=== PATIENT | female | born 1990 | race Caucasian/White ===

== ENCOUNTER 2016-12-20 11:07 | Inpatient (IN) | payer BC ==
[~2016-12-20] VITALS: Ht 152.4 cm; Wt 96.4 kg
[~2016-12-20 11:07] MED LIST: DICY20TA59 PO; HYDR-762 PO
[2016-12-20 11:23] VITALS: Ht 152.4 cm; Wt 96.4 kg
[2016-12-20 11:24] VITALS: BP 123/65; PULSE 82
[2016-12-20] MEDS ORDERED: PRENAT PO (11:25)
[2016-12-20] MEDS ORDERED: OXYTOCIN 30 UNITS/LR 500 ML IV PRN (12:00)
[2016-12-20] MEDS ORDERED: LACTATED RINGER'S 1,000 ML IV PRN (12:00)
[2016-12-20] MEDS ORDERED: LIDOCAINE 1% (MPF) 30 ML INJ INJ PRN (12:00)
[2016-12-20] MEDS ORDERED: OXYTOCIN 30 UNITS/LR 500 ML IV SCH ×3 (12:00)
[2016-12-20] MEDS ORDERED: BUTORPHANOL 2 MG INJ IV PRN ×2 (12:00)
[2016-12-20] MEDS ORDERED: METHYLERGONOVINE 0.2 MG INJ IM PRN (12:00)
[2016-12-20] MEDS ORDERED: CARBOPROST 250 MCG INJ IM PRN (12:00)
[2016-12-20] MEDS ORDERED: MISOPROSTOL 200 MCG TAB PR PRN (12:00)
[2016-12-20] MEDS: LACTATED RINGER'S 1,000 ML IV SCH ×2 (12:49→18:08)
[2016-12-20 12:51] LABS: BASOPHILS % 0.3 % (0.0-2.0); EOSINOPHILS % 0.3 % (0.0-7.0); HEMATOCRIT 39.6 % (37.0-47.0); HEMOGLOBIN 12.8 g/dl (12.0-16.0); LYMPHOCYTES # 1.8 10^3/ul (0.8-2.9); LYMPHOCYTES % 15.4 % (15.0-51.0); MEAN CORPUSCULAR HEMOGLOBIN 29.7 pg (29.0-33.0); MEAN CORPUSCULAR HGB CONC 32.3 g/dl (32.0-37.0); MEAN CORPUSCULAR VOLUME 91.9 fl (82.0-101.0); MEAN PLATELET VOLUME 11.7 fl (7.4-10.4); MONOCYTE # 0.6 10^3/ul (0.3-0.9); MONOCYTES % 4.8 % (0.0-11.0); NEUTROPHILS % 78.7 % (39.0-77.0); PLATELET COUNT 240 10^3/UL (140-415); RED BLOOD COUNT 4.31 10^6/ul (4.20-5.40); RED CELL DISTRIBUTION WIDTH 13.3 % (11.5-14.5); WHITE BLOOD COUNT 11.6 10^3/ul (4.8-10.8)
[2016-12-20 12:57] LABS: INR 0.9; PROTIME 12.1 Sec (12.2-14.2); PT RATIO 0.9
[2016-12-20 12:58] LABS: PARTIAL THROMBOPLASTIN TIME 28.9 Sec (25.0-35.0)
[2016-12-20] MEDS ORDERED: DINOPROSTONE 10 MG VAG SUPP VAG ONE (14:30)
[2016-12-21] MEDS: LACTATED RINGER'S 1,000 ML IV SCH ×3 (01:49→19:03)
[2016-12-21] MEDS ORDERED: FENTAnyl 2MCG/ML-ROPIV 0.2% 100 ML ONE (03:40)
[2016-12-21] MEDS ORDERED: ONDANSETRON 4 MG INJ IV PRN (05:00)
[2016-12-21] MEDS ORDERED: TRIMETHOBENZAMIDE 100 MG/ML VIAL IM PRN (05:00)
[2016-12-21] MEDS ORDERED: NALOXONE (0.4 MG/ML) INJ IV PRN (05:00)
[2016-12-21] MEDS ORDERED: DIPHENHYDRAMINE 50 MG INJ IV PRN (05:00)
[2016-12-21] MEDS ORDERED: NALBUPHINE HCL (10 MG/1 ML) INJ IV PRN (05:00)
[2016-12-21] MEDS ORDERED: DINOPROSTONE 10 MG VAG SUPP VAG ONE (05:00)
[2016-12-21] MEDS: FENTAnyl 2MCG/ML-ROPIV 0.2% 100 ML BAG EPI SCH ×2 (10:52→18:14)
[2016-12-22] MEDS: FENTAnyl 2MCG/ML-ROPIV 0.2% 100 ML BAG EPI SCH ×3 (00:46→13:43)
[2016-12-22] MEDS: LACTATED RINGER'S 1,000 ML IV SCH ×3 (02:29→13:56)
[2016-12-22] MEDS ORDERED: DEXTROSE 5%-LR 1,000 ML IV PRN (12:00)
[2016-12-22] MEDS ORDERED: MINERAL OIL LIGHT 10 ML VIAL ONE (13:51)
[2016-12-22] MEDS ORDERED: AMPICILLIN 2 GM/NS (PMX) 100 ML ONE (14:58)
[2016-12-22] MEDS ORDERED: AMPICILLIN 2 GM/NS (PMX) 100 ML IVPB ONE (15:00)
[2016-12-22] MEDS ORDERED: ACETAMINOPHEN 325 MG TAB PO PRN (16:20)
[2016-12-22] MEDS ORDERED: AMPICILLIN 1 GM/NS (PMX) 50 ML IVPB SCH (17:00)
--- NOTE | 2016-12-22 17:08 | HP ---
Date/Time of Note Date/Time of Note DATE: 12/22/16 TIME: 16:59 OB - History Hx of Present Free Text/Dictation 26 y.o at 39w2d here for induction initial exam ftp/long -2 EFM u,cq5-10min mild had unevenful course membrane intact GBS neg Chief Complaint: for induction Estimated Due Date: Dec 25, 2016 : 1 Para: 0 Spontaneous : 0 Therapeutic : 0 Care: Good Care Ultrasounds: Normal mid trimester US Obstetrical Complications: None Medical Complications: None Past Family/Social History * Past Medical, Surgical, Family and Obstetric Histories reviewed from chart. Blood Type: O+ Rubella: immune RPR/VDRL: Negative GBS Status: Negative HBsAG: Negative OB Admission Exam Vital Signs Vital Signs Vital Signs Date Time Temp Pulse Resp B/P Pulse Ox O2 Delivery O2 Flow Rate FiO2 12/20/16 11:24 97.9 82 123/65 Physical Exam HEENT: WNL Heart: Rhythm Normal Lungs: Clear, Equal Abdomen: WNL Extremities: Normal Reflexes: Normal Cervical Dilatation: Fingertip Effacement: 0% Station: Ballotable Membranes: Intact Amniotic Fluid: Unevaluable Heart Rate: 150's Accelerations: Accelerations Present Decelerations: No Decelerations Varibility: Moderate Contractions on Admission: 6-10 Minutes Apart Intensity: Mild Last 72 hours Lab Results CBC & BMP 12/20/16 12:20 OB Assessment/Plan Reason for admission: induction of labor Other Assessment: IUP 39w2d Plan: Induction Induction Method: per Misoprostol Protocol LIZANDRO URBINA MD Dec 22, 2016 17:08
--- NOTE | 2016-12-22 17:38 | LDN ---
Date/Time of Note Date/Time of Note DATE: 12/22/16 TIME: 17:35 Delivery Summary normal vaginal delivery Weeks of Gestation 39w4d Placenta Delivered: Spontaneously Meconium: none Episiotomy: No Perineal laceration: 2 Laceration repair: 000ch gut with SH needle Anesthesia type: Epidural Estimated blood loss: 200 Sponge & Needle done & correct: Yes All needle counts correct: Yes Any foreign bodies felt in the: No Problems: Infant Delivery Information Sex Infant Sex: female Apgars 1 Minute: 9 5 Minute: 9 Suctioning Nose & mouth suctioned at tad: Yes Delee suction performed: No Umbilical Cord Umbilical cord with: 3 Vessels Cord presentations: nuchal cord Nuchal cord present X: 1 Cord Blood was obtained: Yes Mother & Baby Disposition Disposition Mom & Baby to Maternity; Good: Yes Mom transferred to: Other () Baby to NICU: No LIZANDRO URBINA MD Dec 22, 2016 17:38
[2016-12-22 18:05] VITALS: BP 141/73; PULSE 53; RESP 20
[2016-12-22] MEDS: IBUPROFEN 600 MG TAB PO SCH ×2 (18:56→23:58)
[2016-12-22] MEDS ORDERED: OXYTOCIN 30 UNITS/LR 500 ML IV PRN (19:00)
[2016-12-22] MEDS ORDERED: METHYLERGONOVINE 0.2 MG INJ IM PRN (19:00)
[2016-12-22] MEDS ORDERED: BENZOCAINE 20% 56 ML SPRAY TOP PRN (19:00)
[2016-12-22] MEDS ORDERED: CARBOPROST 250 MCG INJ IM PRN (19:00)
[2016-12-22] MEDS ORDERED: ZOLPIDEM 5 MG TAB PO PRN (19:00)
[2016-12-22] MEDS ORDERED: OXYCODONE/ASPIRIN (4.88/325) TAB PO PRN ×2 (19:00)
[2016-12-22] MEDS ORDERED: LANOLIN 7 GM TUBE TOP PRN (19:00)
[2016-12-22] MEDS ORDERED: WITCH HAZEL/GLYCERIN PAD PR PRN (19:00)
[2016-12-22] MEDS ORDERED: MISOPROSTOL 200 MCG TAB PR PRN (19:00)
[2016-12-22 20:05] VITALS: BP 103/50; PULSE 65; RESP 19
[2016-12-22] MEDS ORDERED: LACTATED RINGER'S 1,000 ML IV SCH (21:30)
[2016-12-22] MEDS: CEFAZOLIN 2 GM/50 ML (PMX) 50 ML IVPB SCH (22:15)
[2016-12-22] MEDS: SENNA/DOCUSATE NA (8.6MG/50MG) TAB PO SCH (22:15)
[2016-12-22 23:50] VITALS: BP 99/54; PULSE 57; RESP 19
[2016-12-23 04:10] VITALS: BP 93/55; PULSE 57; RESP 18
[2016-12-23] MEDS: IBUPROFEN 600 MG TAB PO SCH ×4 (05:31→23:42)
[2016-12-23] MEDS: CEFAZOLIN 2 GM/50 ML (PMX) 50 ML IVPB SCH ×2 (05:31→14:49)
[2016-12-23 07:45] VITALS: BP 98/55; PULSE 54; RESP 18
[2016-12-23 09:24] LABS: BASOPHIL # 0.1 10^3/ul (0.0-0.1); BASOPHILS % 0.3 % (0.0-2.0); EOSINOPHILS # 0.1 10^3/ul (0.0-0.5); EOSINOPHILS % 0.6 % (0.0-7.0); HEMATOCRIT 35.9 % (37.0-47.0); HEMOGLOBIN 11.5 g/dl (12.0-16.0); LYMPHOCYTES # 2.1 10^3/ul (0.8-2.9); LYMPHOCYTES % 8.8 % (15.0-51.0); MEAN CORPUSCULAR HEMOGLOBIN 29.1 pg (29.0-33.0); MEAN CORPUSCULAR VOLUME 90.9 fl (82.0-101.0); MEAN PLATELET VOLUME 12.1 fl (7.4-10.4); MONOCYTE # 1.4 10^3/ul (0.3-0.9); MONOCYTES % 5.7 % (0.0-11.0); NEUTROPHILS % 83.8 % (39.0-77.0); PLATELET COUNT 198 10^3/UL (140-415); RED BLOOD COUNT 3.95 10^6/ul (4.20-5.40); RED CELL DISTRIBUTION WIDTH 13.5 % (11.5-14.5); WHITE BLOOD COUNT 23.9 10^3/ul (4.8-10.8)
[2016-12-23] MEDS: SENNA/DOCUSATE NA (8.6MG/50MG) TAB PO SCH ×2 (09:48→21:54)
[2016-12-23 16:00] VITALS: BP 101/57; PULSE 59; RESP 18
--- NOTE | 2016-12-23 16:21 | PN ---
Date/Time of Note Date/Time of Note DATE: 12/23/16 TIME: 16:17 OB Subjective Subjective Subjective no c/o OB Objective Objective Objective vss afebrile fundus firm non tender lochia min calf neg for tenderness OB Assessment/Plan Other Assessment: stable # 1 normal vaginal delivery Other plan: as ordered LIZANDRO URBINA MD Dec 23, 2016 16:21
[2016-12-23 16:36] LABS: BASOPHIL # 0.1 10^3/ul (0.0-0.1); BASOPHILS % 0.3 % (0.0-2.0); EOSINOPHILS # 0.2 10^3/ul (0.0-0.5); EOSINOPHILS % 0.6 % (0.0-7.0); HEMATOCRIT 36.2 % (37.0-47.0); HEMOGLOBIN 11.6 g/dl (12.0-16.0); LYMPHOCYTES # 2.6 10^3/ul (0.8-2.9); MEAN CORPUSCULAR HEMOGLOBIN 29.4 pg (29.0-33.0); MEAN CORPUSCULAR VOLUME 91.9 fl (82.0-101.0); MONOCYTES % 4.2 % (0.0-11.0); NEUTROPHIL # 19.6 10^3/ul (1.6-7.5); NEUTROPHILS % 83.2 % (39.0-77.0); PLATELET COUNT 203 10^3/UL (140-415); RED BLOOD COUNT 3.94 10^6/ul (4.20-5.40); RED CELL DISTRIBUTION WIDTH 13.5 % (11.5-14.5); WHITE BLOOD COUNT 23.5 10^3/ul (4.8-10.8)
[2016-12-23] MEDS: CEPHALEXIN 500 MG CAP PO SCH ×2 (18:46→23:42)
[2016-12-23 20:30] VITALS: BP 102/57; PULSE 57; RESP 18
[2016-12-24 04:00] VITALS: BP 97/54; PULSE 62; RESP 18
[2016-12-24] MEDS: IBUPROFEN 600 MG TAB PO SCH ×2 (05:32→11:34)
[2016-12-24] MEDS: CEPHALEXIN 500 MG CAP PO SCH ×2 (05:32→11:34)
[2016-12-24 08:12] VITALS: BP 111/59; PULSE 64; RESP 18
[2016-12-24] MEDS: SENNA/DOCUSATE NA (8.6MG/50MG) TAB PO SCH (08:52)
[2016-12-24] MEDS ORDERED: DIPHTH/TET/ACEL PERTUSS (ADULT) 0.5 ML VIAL IM* ONE (09:00)
[2016-12-24 09:03] LABS: BASOPHIL # 0.1 10^3/ul (0.0-0.1); BASOPHILS % 0.3 % (0.0-2.0); EOSINOPHILS # 0.2 10^3/ul (0.0-0.5); EOSINOPHILS % 1.1 % (0.0-7.0); HEMATOCRIT 36.8 % (37.0-47.0); HEMOGLOBIN 11.7 g/dl (12.0-16.0); LYMPHOCYTES # 2.2 10^3/ul (0.8-2.9); MEAN CORPUSCULAR HEMOGLOBIN 29.3 pg (29.0-33.0); MEAN CORPUSCULAR HGB CONC 31.8 g/dl (32.0-37.0); MEAN CORPUSCULAR VOLUME 92.2 fl (82.0-101.0); MEAN PLATELET VOLUME 12.3 fl (7.4-10.4); MONOCYTE # 0.8 10^3/ul (0.3-0.9); MONOCYTES % 4.9 % (0.0-11.0); NEUTROPHIL # 12.5 10^3/ul (1.6-7.5); NEUTROPHILS % 78.9 % (39.0-77.0); PLATELET COUNT 215 10^3/UL (140-415); RED BLOOD COUNT 3.99 10^6/ul (4.20-5.40); RED CELL DISTRIBUTION WIDTH 13.6 % (11.5-14.5); WHITE BLOOD COUNT 15.8 10^3/ul (4.8-10.8)
--- NOTE | 2016-12-24 13:22 | PD.PPDC ---
[employer] Discharge Instruction Diagnosis Final Diagnosis: s/p normal vaginal delivery Condition Patient Condition: Stable Diet Diet: Resume Regular Diet Activity/Restrictions Activity: May Shower Restrictions: No Lifting No Sexual Activity Nothing in the Vagina No [place] No Tampons, douche Follow-up Follow-up with Physician: Week/Weeks Return to clinic for PHARMACY SPECIALIST Instructions: Fever greater than 101 Chills Worsening abdominal pain Excessive Vaginal Bleeding More than 2 pads per hour Unable to tolerate diet OB Instructions: Breast Tenderness Depression Blurried Vision Headache LIZANDRO URBINA MD Dec 24, 2016 13:22
--- NOTE | 2016-12-24 13:26 | DS ---
Date/Time of Note Date/Time of Note DATE: 12/24/16 TIME: 13:25 Obstetrical Discharge Record Final Diagnosis Final Diagnosis: Term delivered Vaginal Delivery Obstetrical Delivery: Spontaneous, Laceration, Repaired Complications Augmentation: Yes Induction: Yes Rupture of Membranes: No Condition on Discharge Physical Assessment Last Vitals: vss afebrile Voiding: Yes Bowel Movement: Yes Breast: Soft, non-tender Fundus: Firm Calf Tenderness: No Patient Condition: Stable LIZANDRO URBINA MD Dec 24, 2016 13:26
== END 2016-12-24 15:00 | disposition home or self-care (01) | DRG 775 ==
LOC: L-D 11:07 → OBT 11:07 → L-D 12:17 → PP1 12-22 18:13
PROVIDERS: ADMIT Obstetrics & Gynecology; ATTEND Obstetrics & Gynecology
PROC: 10E0XZZ Delivery of Products of Conception, External Approach (ICD-10-PCS; principal; 2016-12-22)
PROC: 0KQM0ZZ Repair Perineum Muscle, Open Approach (ICD-10-PCS; 2016-12-22)
DX: O70.1 Second degree perineal laceration during delivery (principal); Z37.0 Single live birth; O69.81X0 Labor and delivery complicated by cord around neck, without compression, not applicable or unspecified; Z3A.39 39 weeks gestation of pregnancy
CPT/HCPCS: 62319; 85025; 85610; 85730; 86592; 86900; 86901; 87340; 90715; 99464; G0463; J0290; J0595; J0690; J2405; J2590; J3010; J7120

== ENCOUNTER 2017-02-15 20:46 | Emergency (ER) | payer BC ==
[~2017-02-15] VITALS: Ht 154.9 cm; Wt 91.0 kg
[~2017-02-15 20:46] MED LIST changes: -DICY20TA59 PO; -HYDR-762 PO; +PRENAT PO
[2017-02-15 20:59] VITALS: Ht 154.9 cm; Wt 91.0 kg
--- NOTE | 2017-02-15 21:25 | ERD ---
ER Documentation Chief Complaint Chief Complaint RLQ pelvic pain all day, worse tonight, worse w/ walking. 7wk post HPI Otherwise healthy 26-year-old female presenting with a chief complaint of right lower quadrant abdominal pain 24 hours. Worse with walking. Better with sitting. 7 weeks status post vaginal delivery. No medical conditions. Has not taken any medications to relieve the symptoms. Refuses medications in the emergency department. Denies fever, nausea, vomiting, diarrhea, constipation. History of cholecystectomy. No other abdominal surgeries. Patient has no other complaints and describes no other associated manifestations. Nursing notes have been reviewed and are consistent with history given. ROS All systems reviewed and are negative except as per history of present illness. Medications Home Meds Reported Medications Multivit/Min/Fol Ac/Iron/Pren* ( S*) 1 Tab Tab, 1 TAB PO DAILY, TAB 12/20/16 Allergies Allergies: Coded Allergies: No Known Allergy (Unverified , 09/14/15) PMhx/Soc History of Surgery: No Anesthesia Reaction: No Hx Neurological Disorder: No Hx Respiratory Disorders: No Hx Cardiac Disorders: No Hx Psychiatric Problems: No Hx Miscellaneous Medical Probl: No Hx Alcohol Use: No Hx Substance Use: No Hx Tobacco Use: No Physical Exam Vitals Vital Signs Date Time Temp Pulse Resp B/P Pulse Ox O2 Delivery O2 Flow Rate FiO2 02/15/17 20:59 98.6 68 18 129/79 100 Physical Exam Const: Healthy well-appearing 26-year-old female no acute distress Head: Atraumatic Eyes: Normal Conjunctiva ENT: Normal External Ears, Nose and Mouth. Neck: Full range of motion..~ No meningismus. Resp: Clear to auscultation bilaterally Cardio: Regular rate and rhythm, no murmurs Abd: Mild to moderate right lower quadrant tenderness. Positive psoas sign. Negative Rovsing's and obturator sign. Soft, non distended. Normal bowel sounds Skin: No petechiae or rashes Back: No midline or flank tenderness Ext: No cyanosis, or edema Neur: Awake and alert Psych: Normal Mood and Affect Result Diagram: 02/15/17212502/15/172125 Results 24 hrs Laboratory Tests Test 02/15/17 21:00 02/15/17 21:16 02/15/17 21:26 Urine Color YELLOW Urine Clarity CLOUDY Urine pH 5.0 Urine Specific [place] 1.020 Urine Ketones NEGATIVEmg/dL Urine Nitrite NEGATIVEmg/dL Urine Bilirubin NEGATIVEmg/dL Urine Urobilinogen 1+mg/dL Urine Leukocyte Esterase 2+Doretha/ul Urine Microscopic RBC 2/HPF Urine Microscopic WBC 11/HPF Urine Squamous Epithelial Cells MODERATE/HPF Urine Bacteria FEW/HPF Urine Mucus FEW/HPF Urine Hemoglobin NEGATIVEmg/dL Urine Glucose NEGATIVEmg/dL Urine Total Protein NEGATIVEmg/dl Bedside Urine pH (LAB) 6.0 Bedside Urine Protein (LAB) Trace Bedside Urine Glucose (UA) Negative Bedside Urine Ketones (LAB) Negative Bedside Urine Blood Negative Bedside Urine Nitrite (LAB) Negative Bedside Urine Leukocyte Esterase (L Trace White Blood Count 9.810^3/ul Red Blood Count 3.9710^6/ul Hemoglobin 12.0g/dl Hematocrit 36.9% Mean Corpuscular Volume 92.9fl Mean Corpuscular Hemoglobin 30.2pg Mean Corpuscular Hemoglobin Concent 32.5g/dl Red Cell Distribution Width 13.1% Platelet Count 53301^3/UL Mean Platelet Volume 11.0fl Neutrophils % 61.7% Lymphocytes % 30.9% Monocytes % 5.9% Eosinophils % 0.7% Basophils % 0.5% Nucleated Red Blood Cells % 0.0/100WBC Neutrophils # 6.110^3/ul Lymphocytes # 3.010^3/ul Monocytes # 0.610^3/ul Eosinophils # 0.110^3/ul Basophils # 0.110^3/ul Nucleated Red Blood Cells # 0.010^3/ul Sodium Level 142mmol/L Potassium Level 3.6mmol/L Chloride Level 105mmol/L Carbon Dioxide Level 27mmol/L Anion Gap 14 Blood Urea Nitrogen 14mg/dl Creatinine 0.75mg/dl Glucose Level 98mg/dl Calcium Level 8.8mg/dl Total Bilirubin 0.2mg/dl Direct Bilirubin 0.00mg/dl Indirect Bilirubin 0.2mg/dl Aspartate Amino Transf (AST/SGOT) 25IU/L Alanine Aminotransferase (ALT/SGPT) 36IU/L Alkaline Phosphatase 69IU/L Total Protein 7.1g/dl Albumin 4.0g/dl Globulin 3.10g/dl Albumin/Globulin Ratio 1.29 Lipase 139U/L Current Medications Medications (Trade) Dose Ordered Sig/Tsering Route PRN Reason Start Time Stop Time Status Last Admin Dose Admin Morphine Sulfate (morphine) 4 mg ONCE STAT IV 02/15/17 22:18 02/15/17 22:20 DC 02/15/17 22:23 Ondansetron HCl (Zofran Inj) 4 mg ONCE STAT IV 02/15/17 22:18 02/15/17 22:20 DC 02/15/17 22:22 Procedures/MDM Otherwise healthy 26-year-old female presenting with a chief complaint of 24 hours of right lower quadrant abdominal pain. History of cholecystectomy. Differential diagnosis includes appendicitis. Urine negative. Vaginal delivery 7 weeks ago. 4 mg of morphine and 4 mg of Zofran given IV with resolution of symptoms. Labs were largely unremarkable. CT was read by the radiologist as unremarkable for acute process. Most likely diagnosis is abdominal pain of unknown etiology. I have little suspicion for acute abdomen, or other serious bacterial infection. Have recommended [id number] MiraLAX as well as Tylenol. Patient tolerates p.o. Well-appearing. I have spoke with the patient regarding their condition and future management. They have verbally responded that they understand their status and treatment plan. The patients vitals are stable, and their current condition is appropriate for discharge. The patient will be given discharge instructions with return precautions. Departure Diagnosis: Primary Impression: Abdominal pain Abdominal location: right lower quadrant Qualified Code: R10.31 - Right lower quadrant abdominal pain Condition: Stable Additional Instructions: Follow up with your PCP within the next 1-3 days for a more thorough evaluation and a possible referral to a specialist. Return the the emergency department immediately if symptoms worsen or change. If you have any questions regarding medications, ask your pharmacist or us before you leave. If any adverse reactions occur while taking your medications, discontinue the treatment and return to the emergency department immediately. Take your medications as directed, and complete the entire course of treatment. JOSEFINA MAK PA-C Feb 15, 2017 21:25
[2017-02-15] MEDS ORDERED: ONDANSETRON 4 MG INJ IV STA (22:18)
[2017-02-15] MEDS ORDERED: morphine 4 MG/ML VIAL IV STA (22:18)
--- NOTE | 2017-02-15 22:19 | RADRPT ---
PROCEDURE: CT Abdomen and Pelvis without contrast. CLINICAL INDICATION: Right lower quadrant abdominal pain TECHNIQUE: CT scan of the abdomen and pelvis without contrast was performed without intravenous co ntrast. Coronal and sagittal reformatted images were obtained from the axial source images. Images were reviewed on a high-resolution PACS workstation. CTDI 21 mGy, DLP 1166 mGy-cm One or more of the following dose reduction techniques were used: Automated exposure control Adjustment of the mA and/or kV according to patient size. Use of iterative reconstruction technique. COMPARISON: None. FINDINGS: The lung bases are clear. The heart size is normal. The aorta and its branches are normal in size and caliber. The kidneys are symmetric in size and density. There is no perinephric fat stranding. There is no ne phroureterolithiasis or hydronephrosis. The ureters are normal in course and caliber. Evaluation of solid organs is limited due to the lack of intravenous contrast. Cholecystectomy clips are present. There is no intrahepatic or extrahepatic biliary ductal dilatation. The visualized reina er is unremarkable. The spleen, adrenal glands, and pancreas are unremarkable. The distal esophagus is unremarkable. The stomach is distended with debris and grossly unremarkable. The small bowel loops are normal in caliber, without evidence for small bowel obstruction. The jaja endix is visualized on sagittal images 68 - 72 and coronal images 39 - 42 and is unremarkable in jaja earance. Stool is noted throughout colon. There is no free intraperitoneal fluid or pneumoperitoneum . There is no mesenteric, retroperitoneal, or pelvic lymphadenopathy. The bladder is mildly distended, but grossly unremarkable. The uterus and adnexa are unremarkable. There is no pelvic free fluid. There are no acute fractures. Mild degenerative disc disease is present within the lower lumbar spin e at L5-S1. RPTAT: ZZ IMPRESSION: 1. No acute intra-abdominal abnormality. 2. Postsurgical changes of cholecystectomy without significant biliary ductal location. 3. Mild degenerative disc disease at L5-S1. .Antoinette Mena MD, Date Time Electronically viewed and signed by .Antoinette Mena MD, on 02/15/2017 22:19 .T/
== END 2017-02-15 23:08 | disposition home or self-care (01) ==
LOC: E/R 20:46 → FTE 23:08
DX: R10.31 Right lower quadrant pain (principal); R10.2 Pelvic and perineal pain
CPT/HCPCS: 36415; 74176; 80053; 81001; 83690; 85025; 96374; 96375; 99285; J2270; J2405; 81003